=== PATIENT | male | born 1955 | race Caucasian/White ===

== ENCOUNTER 2018-08-02 10:47 | Day surgery (SDC) | payer MEDICARE, BC ==
[~2018-08-02 10:47] MED LIST: CEFAZOLIN 2 Gram 2 GM/50 ML BAG IVPB ONE
[2018-08-02] MEDS ORDERED: PROPOFOL 10 MG/ML VIAL IV ONE (10:48)
[2018-08-02] MEDS ORDERED: DEXAMETHASONE 4 MG/ML 1ML VIAL IVP ONE (10:48)
[2018-08-02] MEDS ORDERED: ROPIVACAINE HCL (NAROPIN) /PF 5MG/ML 20ML VIAL IV ONE (10:48)
[2018-08-02] MEDS ORDERED: SEVOFLURANE 250 ML INH ONE (10:48)
[2018-08-02] MEDS ORDERED: BUPIVACAINE 0.5% W/EPI MPF 30 ML VIAL IVP ONE (10:48)
[2018-08-02] MEDS ORDERED: KETOROLAC 30 MG/ML VIAL IVP ONE (10:48)
[2018-08-02] MEDS ORDERED: MIDAZOLAM HCL 2MG/2ML VIAL IV ONE (10:48)
[2018-08-02] MEDS ORDERED: HYDROMORPHONE HCL 2 MG/ML VIAL IV ONE (10:48)
--- NOTE | 2018-08-03 08:30 | Operative Note ---
DATE OF SURGERY: 08/02/2018 PREOPERATIVE DIAGNOSIS: Bimalleolar ankle fracture on the right with syndesmosis injury. POSTOPERATIVE DIAGNOSIS: Bimalleolar ankle fracture on the right with syndesmosis injury. OPERATION: 1. Open reduction and internal fixation of the right distal fibula. 2. Open reduction and internal fixation of the syndesmosis. Staff Surgeon: Naldo Esquivel MD Anesthesia: General. Preparation: Chloraprep. Individual Considerations: None. PROCEDURE: The patient was taken to the operating room and placed supine on the operating room table. He had a successful induction with general anesthetic. His right lower extremity was prepped and draped in the usual fashion. The limb was elevated and tourniquet inflated to 250 mmHg. The patient had an incision along the fibula laterally from the tip, approximately I would say about 12 cm. The skin was infiltrated with 0.5% Marcaine with epinephrine prior. Sharp dissection carried down through skin and subcutaneous tissues. Small veins were coagulated with a Bovie. I entered the fracture site along the fibula, and patient had basically a long oblique fracture with a thin piece of bone inferiorly proximally. Clot and debris were irrigated out. It was about 4-5 cm proximal to the tip of the fibula. I went ahead and reduced the fracture which is basically in the sagittal plane. I held it reduced with clamps. I put a lag screw which was a single 2.7 fully threaded cortical screw in lag fashion to hold it. I then fashioned a 9-hole 3.5 lateral distal [employer] plate. I was able to fit 5 proximal 3.5 bicortical screws and then 3 distal screws which were locking screws in the distal piece. This gave stable osteosynthesis but when I stressed it, I could see the syndesmosis was opening slightly, so I went ahead and put an Ultratape syndesmosis fixation through one of the distal screws. I drilled it across, delivered the button on the medial side, and then tightened the syndesmosis for the foot in dorsiflexion. This gave a stabilized syndesmosis. After irrigation, I fluoroscoped everything to verify fixation. Hemostasis was obtained with a Bovie. The only thing I could really close was the skin. I did multiple 3-0 nylon in alternating vertical and simple fashion and a sterile bulky compressive soft cast was applied along with a boot. The patient tolerated procedure well. Needle and sponge counts were correct. Estimated blood loss was minimal. He was taken back to the recovery room in good condition. There were no complications. IRIS
[2018-08-03 13:30] LABS: HEPATITIS B SURFACE ANTIGEN Nonreactive (Nonreactive)
[2018-08-04 20:37] LABS: HEP C RNA QUANT V-LOAD Not Detected (Not Detected)
== END 2018-08-02 16:15 | disposition home or self-care (01) ==
LOC: SUR 10:47
PROVIDERS: ATTEND Orthopaedic Surgery
DX: S82.841A Displaced bimalleolar fracture of right lower leg, initial encounter for closed fracture (principal); I10 Essential (primary) hypertension; J44.9 Chronic obstructive pulmonary disease, unspecified; M06.9 Rheumatoid arthritis, unspecified; G62.9 Polyneuropathy, unspecified
CPT/HCPCS: 27792; 27829; 01480; 64445; 87390; 93005; 76942; J1885; J1170; J0690; J2795

== ENCOUNTER 2018-11-09 11:19 | Day surgery (SDC) | payer MEDICARE, BC ==
--- NOTE | 2018-11-10 08:40 | Operative Note ---
DATE OF SURGERY: 11/09/2018 PREOPERATIVE DIAGNOSIS: Painful hardware, right ankle. OPERATION: Removal of deep buried hardware, right ankle. STAFF SURGEON: Naldo Esquivel MD ANESTHESIA: Local. PREPARATION: Chloraprep. INDIVIDUAL CONSIDERATIONS: None. PROCEDURE: The patient was taken to the operating room and placed supine on the operating room table. I then identified where the button was on his tibia under fluoroscopy and marked it. The knee was prepped and draped in the usual fashion. The patient had about 2 cm worth of skin infiltrated with 1% lidocaine with epinephrine. Sharp dissection carried down through the skin. Blunt dissection carried down directly on top of the button. The suture was transected with a knife. The button removed. After irrigation, the skin was closed with blaze and a dressing was applied. He was taken back to recovery in good condition. There were no complications. IRIS
== END 2018-11-09 16:08 | disposition home or self-care (01) ==
LOC: SUR 11:19
PROVIDERS: ATTEND Orthopaedic Surgery
DX: M25.571 Pain in right ankle and joints of right foot (principal); T84.84XA Pain due to internal orthopedic prosthetic devices, implants and grafts, initial encounter; I10 Essential (primary) hypertension; M06.9 Rheumatoid arthritis, unspecified; G62.9 Polyneuropathy, unspecified